=== PATIENT | male | born 1960 | race Two or more races ===

== ENCOUNTER 2020-01-19 08:34 | Day surgery (SDC) | payer OTHER, SELFPAY ==
[~2020-01-19] VITALS: Ht 172.7 cm; Wt 94.3 kg
[2020-01-19] MEDS ORDERED: MIDAZOLAM 2 MG/2 ML VIAL ONE (09:33)
[2020-01-19] MEDS ORDERED: fentaNYL citrate 0.05 MG/ML VIAL ONE (09:34)
[2020-01-19] MEDS ORDERED: MIDAZOLAM 2 MG/2 ML VIAL IVP ONE (10:00)
== END 2020-01-19 11:00 | disposition home or self-care (01) ==
LOC: MDS 08:34 → MFCC 08:34 → MDS 11:00
PROVIDERS: ATTEND Internal Medicine Gastroenterology
DX: K70.30 Alcoholic cirrhosis of liver without ascites (principal); K22.70 Barrett's esophagus without dysplasia; K44.9 Diaphragmatic hernia without obstruction or gangrene; Z11.59 Encounter for screening for other viral diseases
CPT/HCPCS: 36415; 43239; 86677; J2250; U0003; J3010

== ENCOUNTER 2020-11-28 11:06 | Outpatient (CLI) | payer OTHER, SELFPAY ==
[~2020-11-28] VITALS: Ht 175.3 cm; Wt 97.5 kg
== END 2020-11-28 23:59 | disposition home or self-care (01) ==
LOC: MLB 11:06 → EDSTATUS 12-06 14:10
PROVIDERS: ATTEND Internal Medicine Gastroenterology
DX: Z01.812 Encounter for preprocedural laboratory examination (principal); K22.70 Barrett's esophagus without dysplasia; Z20.822 Contact with and (suspected) exposure to COVID-19
CPT/HCPCS: U0003

== ENCOUNTER 2021-01-10 09:23 | Day surgery (SDC) | payer OTHER ==
[~2021-01-10] VITALS: Ht 175.3 cm; Wt 97.5 kg
[2021-01-10] MEDS ORDERED: fentaNYL citrate 0.05 MG/ML VIAL ONE (12:48)
[2021-01-10] MEDS ORDERED: MIDAZOLAM 5 MG/5 ML VIAL ONE ×2 (12:48→13:06)
[2021-01-10] MEDS ORDERED: MIDAZOLAM 2 MG/2 ML VIAL IVP ONE (13:15)
== END 2021-01-10 14:15 | disposition home or self-care (01) ==
LOC: MDS 09:23 → MMU 09:24 → MDS 14:15
PROVIDERS: ATTEND Internal Medicine Gastroenterology
DX: K74.60 Unspecified cirrhosis of liver (principal); K22.70 Barrett's esophagus without dysplasia
CPT/HCPCS: 43239; 88305; 88313; J2250; J3010